=== PATIENT | male | born 1990 | race Caucasian/White ===

== ENCOUNTER 2019-04-29 02:16 | Emergency (ER) | payer MEDICAID, OTHER ==
[~2019-04-29] VITALS: Ht 167.6 cm; Wt 63.0 kg
[~2019-04-29 02:16] MED LIST: ALBU8HFA PO; CITA20TA28; KETO15CR2 TP; LIDO20SO PO; PRED20TA PO
[2019-04-29 02:20] VITALS: BP 144/85
[2019-04-29] MEDS ORDERED: acetaminophen 325mg tablet PO ONE (02:25)
[2019-04-29] MEDS ORDERED: azithromycin 250mg tablet PO ONE (02:30)
[2019-04-29] MEDS ORDERED: dexamethasone 4mg tablet PO ONE (02:30)
[2019-04-29] MEDS ORDERED: AZIT250T2 PO (02:33)
== END 2019-04-29 02:40 | disposition home or self-care (01) ==
LOC: ER 02:16
DX: J02.0 Streptococcal pharyngitis (principal); B95.5 Unspecified streptococcus as the cause of diseases classified elsewhere; J45.909 Unspecified asthma, uncomplicated; F41.9 Anxiety disorder, unspecified; F12.90 Cannabis use, unspecified, uncomplicated; Z88.8 Allergy status to other drugs, medicaments and biological substances; Z79.899 Other long term (current) drug therapy
CPT/HCPCS: 99284

== ENCOUNTER 2019-06-15 04:03 | Emergency (ER) | payer MEDICAID ==
[~2019-06-15] VITALS: Ht 165.1 cm; Wt 155.0 kg
[2019-06-15 04:11] VITALS: BP 154/109
== END 2019-06-15 04:50 | disposition home or self-care (01) ==
LOC: ER 04:04
DX: J02.9 Acute pharyngitis, unspecified (principal); R05 Cough; J45.909 Unspecified asthma, uncomplicated; F41.9 Anxiety disorder, unspecified; Z88.8 Allergy status to other drugs, medicaments and biological substances
CPT/HCPCS: 99281